=== PATIENT | male | born 1960 | race Caucasian/White ===

== ENCOUNTER 2016-12-28 19:59 | Emergency (ER) | payer OTHER ==
--- NOTE | ~2016-12-28 | CT71 ---
[facility] A Service [facility] RADIOLOGY TEXT RESULTS PATIENT: AB COFFEY LOCATION: SED : [birth year] UNIT #: [id number] AGE: [address]: AAYUSH IRWIN SEX: M ORDER DR: [id number] [place] [id number] E MR#: [id number] Acc #: [id number] NAME: AB COFFEY : 1960 SEX: M STUDY DATE/TIME: 12/28/2016 20:45 UNIT: SED ROOM: STUDY DESCRIPTION: CT Head Wo Contrast Attending Physician: Aayush Irwin Aprn Ordering Physician: Aayush Irwin Aprn Primary Care Physician: Rose Primary Care Physician MEDICAL IMAGING REPORT This report is preliminary unless electronic signature is present. EXAM Head CT, no contrast, 12/28/16. INDICATION Trauma. Fell from a 12 foot ladder this morning at 9 a.m. Complaining of a frontal headache and rib pain and left hand and wrist pain. Hit the forehead, but did not lose consciousness. TECHNIQUE Noncontrast CT brain performed. This CT exam was performed with one or more of the following radiation dose reduction techniques: automatic exposure control, adjustment of mA and/or kV according to patient size, and iterative reconstruction. COMPARISON No comparisons. FINDINGS CT BRAIN: Sulci and ventricles unremarkable. No midline shift. No evidence of acute intracranial hemorrhage. There is no mass, mass effect or edema to suggest acute infarct and no extraaxial fluid collections are present. The globes are intact. The bones are intact. Chronic-appearing ethmoid sinus disease. IMPRESSION 1. No clearly acute intracranial process. No evidence of acute intracranial hemorrhage. 2. Chronic-appearing ethmoid sinus disease. Dictated by... [facility] A Service [facility] RADIOLOGY TEXT RESULTS PATIENT: AB COFFEY LOCATION: SED : [birth year] UNIT #: [id number] AGE: [address]: AAYUSH IRWIN SEX: M ORDER DR: Joseph Jimenez M.D. THIS IS AN ELECTRONICALLY VERIFIED REPORT Joseph Jimenez M.D. at 12/29/2016 11:26 AM JUVE/johnny TD: 12/28/2016 22:40 JOB #: [id number] MEDICAL IMAGING REPORT Page 1 of 1
--- NOTE | ~2016-12-28 | CR281 ---
[facility] A Service of [facility] RADIOLOGY TEXT RESULTS PATIENT: AB COFFEY LOCATION: SED : [birth year] UNIT #: [id number] AGE: [address]: AAYUSH IRWIN SEX: M ORDER DR: [id number] [place] [address] [id number] E MR#: [id number] Acc #: [id number] NAME: AB COFFEY : 1960 SEX: M STUDY DATE/TIME: 12/28/2016 20:34 UNIT: SED ROOM: STUDY DESCRIPTION: CR Wrist Min 3 View Lt Attending Physician: Aayush Irwin Aprn Ordering Physician: Aayush Irwin Aprn Primary Care Physician: Primary Care Physician No MEDICAL IMAGING REPORT This report is preliminary unless electronic signature is present. EXAM Left wrist series INDICATIONS Left hand and wrist pain after a fall today. PROCEDURE Three views of the left wrist. COMPARISON None FINDINGS There is degenerative change and cystic change in the wrist. Appears to be old fracture involving the scaphoid bone. No definite new fracture, but difficult to exclude given the appearance. No convincing evidence for dislocation. IMPRESSION Cystic change and degenerative change throughout the carpal bones with what appears to be an old scaphoid fracture. No definite acute fracture or dislocation, but it is difficult to entirely exclude given the chronic changes. Dictated by... Terry Falcon M.D. THIS IS AN ELECTRONICALLY VERIFIED REPORT Terry Falcon M.D. at 12/29/2016 9:31 AM EED/psc [facility] A Service [facility] RADIOLOGY TEXT RESULTS PATIENT: AB COFFEY LOCATION: SED : [birth year] UNIT #: [id number] AGE: [address]: AAYUSH IRWIN SEX: M ORDER DR: TD: 12/28/2016 22:36 JOB #: [id number] MEDICAL IMAGING REPORT Page 1 of 1
--- NOTE | ~2016-12-28 | CR141 ---
[facility] A Service of [facility] RADIOLOGY TEXT RESULTS PATIENT: AB COFFEY LOCATION: SED : [birth year] UNIT #: [id number] AGE: [address]: AAYUSH IRWIN SEX: M ORDER DR: [id number] [place] [address] [id number] E MR#: [id number] Acc #: [id number] NAME: AB COFFEY : 1960 SEX: M STUDY DATE/TIME: 12/28/2016 20:34 UNIT: SED ROOM: STUDY DESCRIPTION: CR Hand Min 3 Views Lt Attending Physician: Aayush Irwin Aprn Ordering Physician: Aayush Irwin Aprn Primary Care Physician: Primary Care Physician No MEDICAL IMAGING REPORT This report is preliminary unless electronic signature is present. EXAM Left hand series, 12/28/16 INDICATIONS Trauma, fell off a ladder this morning at 9:00 and has pain in the left hand and wrist. History of prior left wrist and hand fractures. TECHNIQUE Three views of the left hand. Correlation is made with wrist series 10/28/09. FINDINGS No acute fracture identified. Advanced degenerative changes are present in the proximal and distal carpal row with invagination of the distal carpal row into the proximal carpal row. There is a chronic-appearing scaphoid fracture that probably accounts for progression of degenerative change and loss of expected alignment of the carpal bones. No distinct acute fracture identified. Small osseous density adjacent to the fifth metacarpal head unchanged from 2009. IMPRESSION 1. No acute fracture. 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 Progression of degenerative change and subluxation of the proximal and distal carpal rows on both frontal and lateral projections. Dictated by... Joseph Jimenez M.D. THIS IS AN ELECTRONICALLY VERIFIED REPORT [facility] A Service of [facility] RADIOLOGY TEXT RESULTS PATIENT: AB COFFEY LOCATION: SED : [birth year] UNIT #: [id number] AGE: [address]: AAYUSH IRWIN SEX: M ORDER DR: Joseph Jimenez M.D. at 12/29/2016 11:25 AM JUVE/shyla TD: 12/28/2016 22:38 JOB #: [id number] MEDICAL IMAGING REPORT Page 1 of 1
--- NOTE | ~2016-12-28 | CR63 ---
[facility] A Service of [facility] RADIOLOGY TEXT RESULTS PATIENT: AB COFFEY LOCATION: SED : [birth year] UNIT #: [id number] AGE: [address]: AAYUSH IRWIN SEX: M ORDER DR: [id number] [place] [address] [id number] E MR#: [id number] Acc #: [id number] NAME: AB COFFEY : 1960 SEX: M STUDY DATE/TIME: 12/28/2016 20:34 UNIT: SED ROOM: STUDY DESCRIPTION: CR Chest 2 View Attending Physician: Aayush Irwin Aprn Ordering Physician: Aayush Irwin Aprn Primary Care Physician: No Primary Care Physician MEDICAL IMAGING REPORT This report is preliminary unless electronic signature is present. EXAM Two-view chest. INDICATION Chest pain after a fall from a ladder today. PROCEDURE Frontal and lateral views of the chest. COMPARISON None. FINDINGS Heart size is normal. No dense consolidation, pleural fluid or pneumothorax. IMPRESSION No acute findings. Dictated by... Terry Falcon M.D. THIS IS AN ELECTRONICALLY VERIFIED REPORT Terry Falcon M.D. at 12/29/2016 9:31 AM DEJUAN/johnny TD: 12/28/2016 22:43 JOB #: [id number] MEDICAL IMAGING REPORT Page 1 of 1
[~2016-12-28 19:59] MED LIST: FLEXERIL10 MG PO; KEFLEX500 M2 PO; NO MEDICATIONS; SILVADENE TOP; VOLTAREN75 MG PO
== END 2016-12-28 21:42 | disposition home or self-care (01) ==
LOC: SED 19:59
DX: S66.912A Strain of unspecified muscle, fascia and tendon at wrist and hand level, left hand, initial encounter (principal); S20.211A Contusion of right front wall of thorax, initial encounter; S00.81XA Abrasion of other part of head, initial encounter; F17.210 Nicotine dependence, cigarettes, uncomplicated; W11.XXXA Fall on and from ladder, initial encounter; Y92.009 Unspecified place in unspecified non-institutional (private) residence as the place of occurrence of the external cause
CPT/HCPCS: 29260; 70450; 71020; 73110; 73130; 99284